=== PATIENT | male | born 2000 | race African-American/Black ===

== ENCOUNTER 2022-02-15 12:49 | Emergency (ER) | payer OTHER, SELFPAY ==
[2022-02-15 13:00] VITALS: BP 146/76; PULSE 80; RESP 20; TEMP 36.8; O2SAT 100
--- NOTE | 2022-02-15 13:56 | ED.SKABFB ---
HPI - Skin/Abscess/Foreign Bdy General Chief complaint: Skin/Abscess/Foreign Body Stated complaint: bump on forehead Source: patient Mode of arrival: ambulatory Limitations: no limitations History of Present Illness HPI narrative: 21-year-old male who presents to [facility] with complaint of area of redness and swelling to left side of his forehead for the past 4 days. Patient reports that he has noticed a swelling and redness moving down his face into his facial cheeks and to his upper eyes for the past 2 days. Patient reports that he did attempt to express drainage from the area yesterday. Patient denies fever, nausea, vomiting or diarrhea. MD complaint: abscess/boil Onset (ago): day(s) (3) Location: face Relieving factors: none Treatments prior to arrival: attempted to drain pus at home Related Data Home Medications Medication Instructions Recorded Confirmed albuterol sulfate 90 mcg/actuation 2 puff inhalation Q4H PRN 02/15/22 02/15/22 aerosol inhaler Shortness Of Breath Allergies Allergy/AdvReac Type Severity Reaction Status Date / Time No Known Allergies Allergy Verified 02/15/22 13:36 Review of Systems Constitutional: Constitutional: Denies chills, Denies fatigue, Denies fever(s) and Denies weakness ENT: Denies vertigo and Denies dizziness Cardiovascular: Cardiovascular: Denies chest pain Respiratory: Respiratory: Denies cough, Denies dyspnea and Denies wheezing Gastrointestinal: Gastrointestinal: Denies diarrhea, Denies nausea and Denies vomiting Integumentary/Breasts: Comments: Abscess to left side of forehead Allergic/Immunologic: Allergic/Immunologic: Denies lip swelling, Denies throat swelling, Denies tongue swelling and Denies wheezing PMFSH Comments At time of signature, I agree with nursing past medical, surgical, social and family history. There is no relevant family history pertinent to the presenting complaint. Exam Const: General: healthy appearing, no acute distress and alert Nutritional Appearance: well nourished Orientation/consciousness: patient oriented x3 Limitations: no limitations Neck: Neck: normal visual inspection Resp: Effort & Inspection: normal respiratory effort and not labored Auscultation: clear to auscultation bilaterally, no crackles, no rales and no rhonchi Cardio: Rate: regular rate Rhythm: regular rhythm Heart sounds: no murmurs Skin: General skin exam: normal color Rashes: no rashes Wounds: no wounds Other: 2 cm raised area noted to left side of forehead with moderate amount of swelling noted. There is also moderate swelling noted to bilateral upper eyelids and upper facial cheeks. Area is fluctuant. Neuro: General: patient oriented x3 Speech: normal speech Gait exam (Neuro): Normal gait present Psych: Affect: normal affect Attitude: cooperative Course Course Level of Care: Express Care Visit Vital Signs Vital signs: Vital Signs Temperature 36.8 C 02/15/22 13:00 Pulse Rate 80 02/15/22 13:00 Respiratory Rate 20 02/15/22 13:00 Blood Pressure 146/76 H 02/15/22 13:00 Pulse Oximetry 100 02/15/22 13:00 Oxygen Delivery Room Air 02/15/22 13:00 Temperature 36.8 C 02/15/22 13:00 Pulse Rate 80 02/15/22 13:00 Respiratory Rate 20 02/15/22 13:00 Blood Pressure 146/76 H 02/15/22 13:00 Pulse Oximetry 100 02/15/22 13:00 Oxygen Delivery Room Air 02/15/22 13:00 MDM - Skin/Abscess/Foreign Bdy MDM Narrative Medical decision making narrative: Due to moderate erythema and swelling to forehead moving down face, patient will be referred to [facility] ER for further evaluation and likely IV antibiotics and labs. Called ER report was given to Dr. Lam. Transfer form completed and signed. Patient agrees to proceed directly to the ER for further evaluation Differential Diagnosis Differential diagnosis: Likely abscess of skin or subcutaneous tissue, cellulitis and other (Sepsis) Critical Care Time C
== END 2022-02-15 14:03 | disposition short-term general hospital (02) ==
PROVIDERS: Emergency Provider Nurse Practitioner Family
DX: L02.01 Cutaneous abscess of face (principal); J45.909 Unspecified asthma, uncomplicated
CPT/HCPCS: 99212; G0463